=== PATIENT | male | born 1960 | race Caucasian/White ===

== ENCOUNTER → 2023-12-17 12:05 | Outpatient (REF) | payer OTHER, SELFPAY | LOC: RCS 12:05 | PROVIDERS: ATTENDING PHYSICIAN Orthopaedic Surgery | DX: Z01.818 Encounter for other preprocedural examination (principal) | CPT/HCPCS: 93005 ==

== ENCOUNTER → 2024-02-11 08:00 | Outpatient (REF) | payer OTHER, SELFPAY | LOC: WOUND 08:00 | PROVIDERS: ATTENDING PHYSICIAN Surgery; FAMILY PHYSICIAN Family Medicine | DX: L97.325 Non-pressure chronic ulcer of left ankle with muscle involvement without evidence of necrosis (principal); I10 Essential (primary) hypertension; K21.9 Gastro-esophageal reflux disease without esophagitis | CPT/HCPCS: 11042; 99214 ==

== ENCOUNTER → 2024-02-11 09:06 | Outpatient (REF) | payer OTHER, SELFPAY | LOC: RAD 09:06 | PROVIDERS: ATTENDING PHYSICIAN Surgery; FAMILY PHYSICIAN Family Medicine | DX: L97.325 Non-pressure chronic ulcer of left ankle with muscle involvement without evidence of necrosis (principal) | CPT/HCPCS: 73610 ==

== ENCOUNTER → 2024-02-18 09:11 | Outpatient (REF) | payer OTHER, SELFPAY | LOC: WOUND 09:11 | PROVIDERS: ATTENDING PHYSICIAN Surgery; FAMILY PHYSICIAN Family Medicine | DX: L97.325 Non-pressure chronic ulcer of left ankle with muscle involvement without evidence of necrosis (principal); I10 Essential (primary) hypertension; K21.9 Gastro-esophageal reflux disease without esophagitis | CPT/HCPCS: 11042 ==

== ENCOUNTER → 2024-02-25 08:53 | Outpatient (REF) | payer OTHER, SELFPAY | LOC: WOUND 08:53 | PROVIDERS: ATTENDING PHYSICIAN Surgery; FAMILY PHYSICIAN Family Medicine | DX: L97.325 Non-pressure chronic ulcer of left ankle with muscle involvement without evidence of necrosis (principal); I10 Essential (primary) hypertension; K21.9 Gastro-esophageal reflux disease without esophagitis | CPT/HCPCS: 11042 ==

== ENCOUNTER → 2024-03-03 08:57 | Outpatient (REF) | payer OTHER, SELFPAY | LOC: WOUND 08:57 | PROVIDERS: ATTENDING PHYSICIAN Surgery; FAMILY PHYSICIAN Family Medicine | DX: L97.325 Non-pressure chronic ulcer of left ankle with muscle involvement without evidence of necrosis (principal); I10 Essential (primary) hypertension; K21.9 Gastro-esophageal reflux disease without esophagitis | CPT/HCPCS: 11042 ==

== ENCOUNTER → 2024-03-24 08:51 | Outpatient (REF) | payer OTHER, SELFPAY | LOC: WOUND 08:51 | PROVIDERS: ATTENDING PHYSICIAN Surgery; FAMILY PHYSICIAN Family Medicine | DX: L97.325 Non-pressure chronic ulcer of left ankle with muscle involvement without evidence of necrosis (principal) | CPT/HCPCS: 11042 ==

== ENCOUNTER → 2024-04-14 09:41 | Outpatient (REF) | payer OTHER, SELFPAY | LOC: WOUND 09:41 | PROVIDERS: ATTENDING PHYSICIAN Surgery; FAMILY PHYSICIAN Family Medicine | DX: L97.325 Non-pressure chronic ulcer of left ankle with muscle involvement without evidence of necrosis (principal); I10 Essential (primary) hypertension; K21.9 Gastro-esophageal reflux disease without esophagitis | CPT/HCPCS: 99212 ==